=== PATIENT | male | born 2000 | race Caucasian/White ===

== ENCOUNTER 2022-06-05 01:33 | Emergency (ER) | payer BC ==
[2022-06-05] MEDS ORDERED: NA CHLORIDE 0.9% 1,000 ML ONE (02:34)
[2022-06-05 02:36] LABS: Urine Blood Negative (Negative); Urine Glucose Negative (Negative); Urine Protein 1+ (Negative); Urine Specific Gravity >=1.030 (1.005-1.030)
[2022-06-05 02:40] LABS: Absolute Lymphocytes (CBC) 1.4 K/uL (0.7-4.9); Hematocrit 43.9 % (39.6-49.0); Lymphocytes % 18.8 % (15.3-44.8); MPV 7.3 fL (7.6-11.3); RBC Red Blood Cell Count 4.78 M/uL (4.33-5.43)
[2022-06-05 02:45] LABS: Protime INR 1.07
[2022-06-05 02:56] LABS: ALT/SGPT 21 U/L (12-78); AST/SGOT 15 U/L (15-37); Albumin 4.4 g/dL (3.4-5.0); BUN Blood Urea Nitrogen 21 mg/dL (7-18); Bicarbonate 30 mmol/L (21-32); Glomerular Filtration Rate 76 ml/min (=/>90); Glucose Level 92 mg/dL (74-106); Potassium 4.4 mmol/L (3.5-5.1); Sodium Level 138 mmol/L (136-145)
[2022-06-05 03:00] LABS: Alkaline Phosphatase 71 U/L (45-117); Bilirubin Total 0.4 mg/dL (0.2-1.0)
[2022-06-05 03:01] LABS: Bilirubin Direct < 0.1 mg/dL (0-0.2)
--- NOTE | 2022-06-05 03:12 | ER ---
Nurse's Notes [facility] Name: Zev Kepm Age: 21 yrs Sex: Male : 2000 Arrival Date: 06/05/2022 Time: 01:36 Bed 15 Private MD: Diagnosis: Abuse of other non-psychoactive substances;Anxiety disorder, unspecified Presentation: 06/05 01:53 Chief complaint: Patient states: he smokes marijuana regularly but recently smoked it a bb lot the last three days and started having an anxiety attack, he is having pain in his upper chest when inhaling and he also vapes and takes "perks". Coronavirus screen: At this time, the client does not indicate any symptoms associated with coronavirus-19. Ebola Screen: No symptoms or risks identified at this time. Initial Sepsis Screen: Does the patient meet any 2 criteria? No. Patient's initial sepsis screen is negative. Does the patient have a suspected source of infection? No. Patient's initial sepsis screen is negative. Risk Assessment: Do you want to hurt yourself or someone else? Patient reports no desire to harm self or others. Onset of symptoms was June 05, 2022. 01:53 Method Of Arrival: Ambulatory bb 01:53 Acuity: ALEXIS 3 bb Triage Assessment: 02:01 General: Appears in no apparent distress. Behavior is appropriate for age. ke1 03:54 Pain: Denies pain. ke1 Historical: - Allergies: 01:57 No Known Allergies; bb - Home Meds: 01:57 None [Active]; bb - PMHx: 01:57 None; bb - PSHx: 01:57 None; bb - Immunization history:: Client reports having NOT received the Covid vaccine. - Social history:: Smoking status: Reported history of juuling and/or vaping. Patient uses street drugs, marijuana, "perks". - Family history:: not pertinent. Screenin:01 Abuse screen: Denies threats or abuse. Nutritional screening: No deficits noted. ke1 Tuberculosis screening: No symptoms or risk factors identified. Fall Risk None identified. Vital Signs: 01:53 BP 129 / 85; Pulse 84; Resp 16 S; Temp 98.7(O); Pulse Ox 98% on R/A; Weight 63.5 kg bb (R); Height 6 ft. 0 in. (182.88 cm) (R); Pain 4/10; 01:53 Body Mass Index 18.99 (63.50 kg, 182.88 cm) ED Course: 01:36 Patient arrived in ED. bp1 01:42 Natalio Kent MD is Attending Physician. raine 01:52 Jose Crocker, RN is Primary Nurse. ke1 01:57 Triage completed. bb 01:57 Arm band placed on Patient placed in an exam room, on a stretcher, on pulse oximetry. bb Family accompanied patient. 02:02 Bed in low position. Call light in reach. Side rails up X 1. ke1 02:24 Inserted saline lock: 20 gauge in right antecubital area, using aseptic technique. ke1 03:11 Pro Pinon MD is Referral Physician. [facility] 03:53 No provider procedures requiring assistance completed. IV discontinued. ke1 Administered Medications: 02:35 Drug: NS 0.9% 1000 ml Route: IV; Rate: 1 bolus; Site: right antecubital; ke1 03:54 Follow up: IV Status: Completed infusion ke1 Medication: 03:54 VIS not applicable for this client. ke1 Outcome: 03:11 Discharge ordered by . [facility] 03:53 Discharged to home ambulatory. ke1 03:53 Condition: good 03:53 Discharge instructions given to family, mother 03:54 Patient left the ED. ke1 Signatures: Natalio Kent MD MD cha Ballard, Brenda, RN RN bb Adela Gonzalez bp1 Jose Crocker RN RN ke1
--- NOTE | 2022-06-05 03:12 | EDPHYS ---
Physician Documentation [facility] Name: Zev Kemp Age: 21 yrs Sex: Male : 2000 Arrival Date: 06/05/2022 Time: 01:36 Bed 15 Private MD: ED Physician Natalio Kent HPI: 06/05 02:09 This 21 yrs old Male presents to ER via Ambulatory with complaints of Anxiety.raine 02:09 anxiety, substance abuse. Onset: The symptoms/episode began/occurred 5 day(s) ago. raine Severity of symptoms: At their worst the symptoms were mild in the emergency department the symptoms are unchanged. The patient has experienced similar episodes in the past, a few times. Historical: - Allergies: :57 No Known Allergies; bb - Home Meds: :57 None [Active]; bb - PMHx: :57 None; bb - PSHx: :57 None; bb - Immunization history:: Client reports having NOT received the Covid vaccine. - Social history:: Smoking status: Reported history of juuling and/or vaping. Patient uses street drugs, marijuana, "perks". - Family history:: not pertinent. ROS: 02:09 Constitutional: Negative for fever, chills, and weight loss, Eyes: Negative for injury, raine pain, redness, and discharge, ENT: Negative for injury, pain, and discharge, Neck: Negative for injury, pain, and swelling, Cardiovascular: Negative for chest pain, palpitations, and edema, Respiratory: Negative for shortness of breath, cough, wheezing, and pleuritic chest pain, Abdomen/GI: Negative for abdominal pain, nausea, vomiting, diarrhea, and constipation, Back: Negative for injury and pain, : Negative for injury, bleeding, discharge, and swelling, MS/Extremity: Negative for injury and deformity, Skin: Negative for injury, rash, and discoloration, Neuro: Negative for headache, weakness, numbness, tingling, and seizure, Allergy/Immunology: Negative for hives, rash, and allergies, Endocrine: Negative for neck swelling, polydipsia, polyuria, polyphagia, and marked weight changes, Hematologic/Lymphatic: Negative for swollen nodes, abnormal bleeding, and unusual bruising. 02:09 Psych: Positive for anxiety. Exam: 02:09 Constitutional: This is a well developed, well nourished patient who is awake, alert, raine and in no acute distress. Head/Face: Normocephalic, atraumatic. Eyes: Pupils equal round and reactive to light, extra-ocular motions intact. Lids and lashes normal. Conjunctiva and sclera are non-icteric and not injected. Cornea within normal limits. Periorbital areas with no swelling, redness, or edema. ENT: Nares patent. No nasal discharge, no septal abnormalities noted. Tympanic membranes are normal and external auditory canals are clear. Oropharynx with no redness, swelling, or masses, exudates, or evidence of obstruction, uvula midline. Mucous membranes moist. Neck: Trachea midline, no thyromegaly or masses palpated, and no cervical lymphadenopathy. Supple, full range of motion without nuchal rigidity, or vertebral point tenderness. No Meningismus. Chest/axilla: Normal chest wall appearance and motion. Nontender with no deformity. No lesions are appreciated. Cardiovascular: Regular rate and rhythm with a normal S1 and S2. No gallops, murmurs, or rubs. Normal PMI, no JVD. No pulse deficits. Respiratory: Lungs have equal breath sounds bilaterally, clear to auscultation and percussion. No rales, rhonchi or wheezes noted. No increased work of breathing, no retractions or nasal flaring. Abdomen/GI: Soft, non-tender, with normal bowel sounds. No distension or tympany. No guarding or rebound. No evidence of tenderness throughout. Back: No spinal tenderness. No costovertebral tenderness. Full range of motion. Skin: Warm, dry with normal turgor. Normal color with no rashes, no lesions, and no evidence of cellulitis. MS/ Extremity: Pulses equal, no cyanosis. Neurovascular intact. Full, normal range of motion. Neuro: Awake and alert, GCS 15, oriented to person, place, time, and situation. Cranial nerves II-XII grossly intact. Motor strength 5/5 in all extremities. Sensory grossly intact. Cerebellar exam normal. Normal gait. Psych: Awake, alert, with orientation to person, place and time. Behavior, mood, and affect are within normal limits. 02:25 ECG was reviewed by the Attending Physician. [facility] Vital Signs: 01:53 BP 129 / 85; Pulse 84; Resp 16 S; Temp 98.7(O); Pulse Ox 98% on R/A; Weight 63.5 kg bb (R); Height 6 ft. 0 in. (182.88 cm) (R); Pain 4/10; 01:53 Body Mass Index 18.99 (63.50 kg, 182.88 cm) bb MDM: 01:43 Patient medically screened. raine 02:12 Differential Diagnosis altered mental status. Data reviewed: vital signs, nurses notes, [facility] lab test result(s), EKG. Data interpreted: ent physician: rate is 84 beats/min, rhythm is regular, Pulse oximetry: on room air. Test interpretation: by ED physician or midlevel provider: ECG, plain radiologic studies. Counseling: I had a detailed discussion with the patient and/or guardian regarding: the historical points, exam findings, and any diagnostic results supporting the discharge/admit diagnosis, lab results, the need for outpatient follow up, for definitive care, a family practitioner, a psychiatrist. 06/05 02:08 Order name: Acetaminophen; Complete Time: 03:11 [facility] 06/05 02:08 Order name: Basic Metabolic Panel; Complete Time: 03:11 [facility] 06/05 02:08 Order name: CBC with Diff; Complete Time: 03:11 [facility] 06/05 02:08 Order name: ETOH Level; Complete Time: 03:11 [facility] 06/05 02:08 Order name: Hepatic Function; Complete Time: 03:11 [facility] 06/05 02:08 Order name: PT-INR; Complete Time: 03:11 [facility] 06/05 02:08 Order name: Ptt, Activated; Complete Time: 03:11 [facility] 06/05 02:08 Order name: Salicylate [facility] 06/05 02:08 Order name: Urine Drug Screen [facility] 06/05 02:08 Order name: EKG; Complete Time: 02:09 [facility] 06/05 02:08 Order name: EKG - Nurse/Tech; Complete Time: 02:24 [facility] 06/05 02:08 Order name: IV Saline Lock; Complete Time: 02:23 [facility] 06/05 02:36 Order name: Urine Dipstick-Ancillary; Complete Time: 03:11 [facility] 06/05 02:08 Order name: Labs collected and sent; Complete Time: 02:23 [facility] 06/05 02:08 Order name: Suicide Screening ([place]); Complete Time: 02:23 [facility] 06/05 02:08 Order name: Urine Dipstick-Ancillary (obtain specimen); Complete Time: 02:39 raine EC:25 Rate is 81 beats/min. Rhythm is regular. QRS [place] is Normal. [place] interval is normal. QRS raine interval is normal. QT interval is normal. No Q waves. T waves are Normal. No ST changes noted. Clinical impression: Normal ECG, NSR w/ Non-specific ST/T Changes, and No evidence of ischemia. Interpreted by me. Reviewed by me. Administered Medications: 02:35 Drug: NS 0.9% 1000 ml Route: IV; Rate: 1 bolus; Site: right antecubital; ke1 03:54 Follow up: IV Status: Completed infusion ke1 Disposition Summary: 06/05/22 03:11 Discharge Ordered Location: Home raine Problem: new raine Symptoms: have improved raine Condition: Stable raine Diagnosis - Abuse of other non-psychoactive substances raine - Anxiety disorder, unspecified raine Followup: raine - With: Private Physician - When: 2 - 3 days - Reason: Recheck today's complaints, Continuance of care, Re-evaluation by your physician Followup: raine - With: - When: 2 - 3 days - Reason: Recheck today's complaints, Re-evaluation by your physician Discharge Instructions: - Discharge Summary Sheet raine - Finding Treatment for Addiction raine - Substance Use Disorder raine - Supporting Someone With an Addiction raine - Substance Use Disorder and Mental Illness raine - Illegal Drug Use Information, Adult raine - Supporting Someone With Anxiety raine Forms: - Medication Reconciliation Form raine - Thank You Letter raine - Antibiotic Education raien - Prescription Opioid Use raine Prescriptions: - Hydroxyzine HCl 25 mg Oral Tablet - take 1 tablet by ORAL route every 6 hours As needed; 30 tablet; Refills: 0, raine Product Selection Permitted Signatures: Dispatcher [employer] Natalio Parra MD MD cha Ballard, Brenda RN RN Jose Farias RN RN ke1
[2022-06-05 03:17] LABS: Barbiturates NEGATIVE (NEGATIVE); Benzodiazepines POSITIVE (NEGATIVE); Cocaine POSITIVE (NEGATIVE); METHAMPHETAM NEGATIVE (NEGATIVE); Methadone NEGATIVE (NEGATIVE); Opiates NEGATIVE (NEGATIVE); Phencyclidine NEGATIVE (NEGATIVE); THC Cannibis POSITIVE (NEGATIVE)
[2022-06-05 04:14] VITALS: BP 129/85; TEMP 98.7; O2SAT 98
--- NOTE | 2022-06-06 15:21 | EKG ---
Test Date: 2022-06-05 Test Time: 02:25:29 Stratigrapher: EM MEASUREMENT RESULTS: Intervals: Rate: 81 OK: 138 QRSD: 88 QT: 342 QTc: 397 Neligh: P: 58 OK: 138 QRS: 92 T: 51 INTERPRETIVE STATEMENTS: Normal sinus rhythm Rightward axis Borderline ECG No previous ECG available for comparison Electronically Signed On 06-06-22 15:19:12 CDT by Robin Julio
== END 2022-06-05 03:54 | disposition home or self-care (01) ==
LOC: ER 01:33
DX: F41.9 Anxiety disorder, unspecified (principal); F55.8 Abuse of other non-psychoactive substances
CPT/HCPCS: 93005; 85025; 80048; 36415; 80320; 80329 ×2; 85610; 80076; 85730; 81003; 80307; 96360; 99283; J7030